=== PATIENT | male | born 1930 | race Caucasian/White ===

== ENCOUNTER 2017-07-19 22:47 | Inpatient (IN) | payer MEDICARE, OTHER, MEDICAID ==
[2017-07-19] MEDS ORDERED: Sodium Chloride 0.9% 10 ML Syringe FLUSH PRN (22:53)
[2017-07-19] MEDS ORDERED: Lactated Ringers 1,000 ML IV ONE (22:56)
--- NOTE | 2017-07-19 23:02 | EDM.PDOC ---
ED HPI GENERAL MEDICAL PROBLEM - General Chief Complaint: Respiratory Problem Stated Complaint: SOB Time Seen by Provider: 07/19/17 22:53 Source of Information: Reports: EMS, Family, RN Notes Reviewed History Limitations: Reports: Respiratory Distress - History of Present Illness INITIAL COMMENTS - FREE TEXT/NARRATIVE: 86-year-old gentleman brought in by EMS services for increasing respiratory distress and hypoxia, recently diagnosed with aspiration pneumonia within the last week, he is a resident of a detention and is a DNR/DNI. After discussion with the family he has progressively gotten worse with his aspiration and has Alzheimer's dementia as well. For this particular event detention staff found him in respiratory distress and hypoxic EMS services were called EMS crew initiated CPAP transported him to the emergency department for further evaluation. Upon arrival he is in respiratory distress saturations mid 80s on CPAP noncommunicative. The majority of this is taken from review of systems, EMS and family members Treatments [employer]: Reports: IV/IO - Related Data Allergies Allergy/AdvReac Type Severity Reaction Status Date / Time No Known Allergies Allergy Verified 06/27/16 11:52 Home Meds: Home Meds Aspirin 1 tab PO Q2D 06/27/16 [History] Polyethylene Glycol 3350 [MiraLAX] 17 gm PO DAILY 06/27/16 [History] Acetaminophen 650 mg PO BID 07/19/17 [History] Albuterol [IJD: Albuterol] 3 ml INH QID 07/19/17 [History] Benzonatate [Benzonatate] 200 mg PO TID 07/19/17 [History] Cholecalciferol (Vitamin D3) [Vitamin D3] 1 tab PO DAILY 07/19/17 [History] Loratadine [Claritin RediTabs] 1 tab PO DAILY 07/19/17 [History] Mirtazapine [Mirtazapine] 1 tab PO BEDTIME 07/19/17 [History] Tamsulosin [Flomax] 1 cap PO BEDTIME 07/19/17 [History] rOPINIRole [Requip] 2 mg PO BEDTIME 07/19/17 [History] Past Medical History Cardiovascular History: Reports: CAD, High Cholesterol, Hypertension, DC Genitourinary History: Reports: BPH, Prostate Disorder Neurological History: Reports: Alzheimers Disease Psychiatric History: Reports: Dementia, Depression Dermatologic History: Reports: Cellulitis - Infectious Disease History Infectious Disease History: Reports: MRSA - Past Surgical History Cardiovascular Surgical History: Reports: Coronary Artery Bypass Musculoskeletal Surgical History: Reports: Shoulder Surgery Social & Family History - Tobacco Use Smoking Status *Q: Never Smoker ED ROS GENERAL - Review of Systems Review Of Systems: Unable To Obtain ED EXAM, GENERAL - Physical Exam Exam: See Below Exam Limited By: Respiratory Distress General Appearance: Obtunded, Severe Distress Respiratory/Chest: Respiratory Distress, Rhonchi, Wheezing, Accessory Muscle Use , Retractions Cardiovascular: Tachycardia GI/Abdominal: Soft, Non-Tender Course - Vital Signs Last Recorded V/S: Last Vital Signs Temp 97.6 F 07/19/17 22:55 Pulse 120 H 07/19/17 22:55 Resp 46 H 07/20/17 00:30 BP 140/74 07/20/17 00:30 Pulse Ox 95 07/20/17 00:30 - Orders/Labs/Meds Orders: Active Orders 24 hr Category Date Time Status BIPAP Adult [RT BiPAP/CPAP] [RC] ASDIRECTED Care 07/19/17 22:55 Active Cardiac Monitoring [RC] .As Directed Care 07/19/17 22:54 Active EKG Documentation Completion [RC] ASDIRECTED Care 07/19/17 22:55 Active Oxygen Therapy [RC] ASDIRECTED Care 07/19/17 22:53 Active Peripheral IV Care [RC] . DIRECTED Care 07/19/17 22:55 Active RT Aerosol Therapy [RC] ASDIRECTED Care 07/19/17 23:43 Active Vital Signs [RC] Q1H Care 07/19/17 23:46 Active Chest 1V Frontal [CR] Stat Exams 07/19/17 22:55 Taken CULTURE BLOOD [BC] Urgent Lab 07/19/17 23:01 Ordered CULTURE BLOOD [BC] Urgent Lab 07/19/17 23:01 Ordered Levofloxacin/Dextrose 5%-Water [Levaquin in D5W 750 MG/ Med 07/19/17 23:45 Active 150 ML] 750 mg Premix Bag 1 bag IV Q24H Morphine Med 07/20/17 01:03 Once 2 mg IVPUSH ONETIME ONE Sodium Chloride 0.9% [Saline Flush] Med 07/19/17 22:53 Active 10 ml FLUSH ASDIRECTED PRN Blood Culture x2 Reflex Set [OM.PC] Urgent Oth 07/19/17 23:00 Ordered Peripheral IV Insertion Adult [OM.PC] Stat Oth 07/19/17 22:53 Ordered Saline Lock Insert [OM.PC] Stat Oth 07/19/17 22:53 Ordered EKG 12 Lead [EK] Stat Ther 07/19/17 22:55 Ordered Medication Orders Levofloxacin/Dextrose 750 mg/ (Premix) 150 mls @ 100 mls/hr IV Q24H [facility] Last Admin: 07/19/17 23:58 Dose: 100 mls/hr Sodium Chloride (Saline Flush) 10 ml FLUSH ASDIRECTED PRN PRN Reason: Keep Vein Open Last Admin: 07/19/17 23:07 Dose: 10 ml Labs: Laboratory Tests 07/19/17 07/19/17 07/19/17 Range/Units 22:53 22:53 22:53 WBC 21.4 H (4.5-11.0) K/uL RBC 4.96 (4.30-5.90) M/uL Hgb 14.6 (12.0-15.0) g/dL Hct 44.8 (40.0-54.0) % MCV 90 (80-98) fL MCH 29 (27-31) pg MCHC 33 (32-36) % Plt Count 298 (150-400) K/uL Neut % (Auto) 83 H (36-66) % Lymph % (Auto) 12 L (24-44) % Sac % (Auto) 4 (2-6) % Eos % (Auto) 1 L (2-4) % Baso % (Auto) 0 (0-1) % Puncture Site ABG pH (7.350-7.450) ABG pCO2 (35.0-42.0) mmHg ABG pO2 (75.0-100.0) mmHg ABG HCO3 (22.0-26.0) mmol/L ABG Total CO2 (23.0-27.0) mmol/L ABG O2 Saturation (95.0-98.0) % ABG O2 Content (15.0-23.0) %vol ABG Base Excess mm/L ABG Hemoglobin (13.5-18.0) g/dL ABG Oxyhemoglobin % ABG Carboxyhemoglobin (0.0-1.6) % ABG Methemoglobin % Андрей Test O2 Delivery Device Oxygen Flow Rate L Sodium 141 (140-148) mmol/L Potassium 4.6 (3.6-5.2) mmol/L Chloride 108 (100-108) mmol/L Carbon Dioxide 27 (21-32) mmol/L Anion Gap 5.9 (5.0-14.0) mmol/L BUN 25 H (7-18) mg/dL Creatinine 1.5 H (0.8-1.3) mg/dL Est Cr Clr Drug Dosing 35.35 mL/min Estimated GFR (MDRD) 44 L (>60) Glucose 196 H (74-106) mg/dL Lactic Acid 2.3 H (0.4-2.0) mmol/L Calcium 8.8 (8.5-10.1) mg/dL Phosphorus 4.8 (2.5-4.9) mg/dL Magnesium 2.3 (1.8-2.4) mg/dL Total Bilirubin 0.3 (0.2-1.0) mg/dL AST 18 (15-37) U/L ALT 20 (12-78) U/L Alkaline Phosphatase 82 (46-116) U/L Troponin I 0.187 H* (0.000-0.056) ng/mL C-Reactive Protein (0.0-0.3) mg/dL NT-Pro-B Natriuret Pep (5-450) pg/mL Total Protein 8.2 (6.4-8.2) g/dL Albumin 3.0 L (3.4-5.0) g/dL Globulin 5.2 H (2.3-3.5) g/dL Albumin/Globulin Ratio 0.6 L (1.2-2.2) 07/19/17 07/19/17 07/19/17 Range/Units 22:56 23:46 23:50 WBC (4.5-11.0) K/uL RBC (4.30-5.90) M/uL Hgb (12.0-15.0) g/dL Hct (40.0-54.0) % MCV (80-98) fL MCH (27-31) pg MCHC (32-36) % Plt Count (150-400) K/uL Neut % (Auto) (36-66) % Lymph % (Auto) (24-44) % Sac % (Auto) (2-6) % Eos % (Auto) (2-4) % Baso % (Auto) (0-1) % Puncture Site Lt radial ABG pH 7.211 L (7.350-7.450) ABG pCO2 67.7 H (35.0-42.0) mmHg ABG pO2 51.3 L (75.0-100.0) mmHg ABG HCO3 26.1 H (22.0-26.0) mmol/L ABG Total CO2 24.3 (23.0-27.0) mmol/L ABG O2 Saturation 76.9 L (95.0-98.0) % ABG O2 Content 15.2 (15.0-23.0) %vol ABG Base Excess -3.1 mm/L ABG Hemoglobin 14.2 (13.5-18.0) g/dL ABG Oxyhemoglobin 76.2 % ABG Carboxyhemoglobin 0.4 (0.0-1.6) % ABG Methemoglobin 0.5 % Андрей Test Passed O2 Delivery Device Cpap Oxygen Flow Rate 8 L Sodium (140-148) mmol/L Potassium (3.6-5.2) mmol/L Chloride (100-108) mmol/L Carbon Dioxide (21-32) mmol/L Anion Gap (5.0-14.0) mmol/L BUN (7-18) mg/dL Creatinine (0.8-1.3) mg/dL Est Cr Clr Drug Dosing mL/min Estimated GFR (MDRD) (>60) Glucose (74-106) mg/dL Lactic Acid (0.4-2.0) mmol/L Calcium (8.5-10.1) mg/dL Phosphorus (2.5-4.9) mg/dL Magnesium (1.8-2.4) mg/dL Total Bilirubin (0.2-1.0) mg/dL AST (15-37) U/L ALT (12-78) U/L Alkaline Phosphatase (46-116) U/L Troponin I (0.000-0.056) ng/mL C-Reactive Protein 1.49 H (0.0-0.3) mg/dL NT-Pro-B Natriuret Pep 393 (5-450) pg/mL Total Protein (6.4-8.2) g/dL Albumin (3.4-5.0) g/dL Globulin (2.3-3.5) g/dL Albumin/Globulin Ratio (1.2-2.2) Meds: Medications Generic Name Dose Route Start Last Admin Trade Name Freq PRN Reason Stop Dose Admin Levofloxacin/Dextrose 750 mg/ 150 mls @ 100 mls/hr 07/19/17 23:45 07/19/17 23 :58 Premix IV 100 mls/hr Q24H KARRIE Administration Sodium Chloride 10 ml 07/19/17 22:53 07/19/17 23:07 Saline Flush FLUSH 10 ml ASDIRECTED PRN Administration Keep Vein Open Discontinued Medications Generic Name Dose Route Start Last Admin Trade Name Freq PRN Reason Stop Dose Admin Albuterol/Ipratropium 3 ml 07/19/17 23:43 07/19/17 23:48 Duoneb 3.0-0.5 Mg/3 Ml NEB 07/19/17 23:44 3 ml ONETIME ONE Administration Lactated Ringer's 1,000 mls @ 500 mls/hr 07/19/17 22:56 07/19/17 23:07 Ringers, Lactated IV 07/20/17 00:55 500 mls/hr BOLUS ONE Administration Morphine Sulfate 2 mg 07/19/17 23:43 07/19/17 23:48 Morphine IVPUSH 07/19/17 23:44 2 mg ONETIME ONE Administration Morphine Sulfate 2 mg 07/20/17 00:29 07/20/17 00:35 Morphine IVPUSH 07/20/17 00:30 2 mg ONETIME ONE Administration Departure - Departure Time of Disposition: 01:08 Disposition: Admitted As Inpatient 66 Condition: Poor Clinical Impression: Respiratory distress Aspiration pneumonia Qualifiers: Aspiration pneumonia type: due to regurgitated food Laterality: unspecified laterality Sepsis Qualifiers: Sepsis type: sepsis due to unspecified organism Qualified Code(s): A41.9 - Sepsis, unspecified organism - Discharge Information Referrals: Johnny Rocha MD [Primary Care Provider] - Forms: ED Department Discharge - My Orders Last 24 Hours: My Active Orders 07/19/17 22:53 Oxygen Therapy [RC] ASDIRECTED Sodium Chloride 0.9% [Saline Flush] 10 ml FLUSH ASDIRECTED PRN Peripheral IV Insertion Adult [OM.PC] Stat Saline Lock Insert [OM.PC] Stat 07/19/17 22:54 Cardiac Monitoring [RC] .As Directed 07/19/17 22:55 BIPAP Adult [RT BiPAP/CPAP] [RC] ASDIRECTED EKG Documentation Completion [RC] ASDIRECTED Peripheral IV Care [RC] . DIRECTED Chest 1V Frontal [CR] Stat EKG 12 Lead [EK] Stat 07/19/17 23:00 Blood Culture x2 Reflex Set [OM.PC] Urgent 07/19/17 23:01 CULTURE BLOOD [BC] Urgent CULTURE BLOOD [BC] Urgent 07/19/17 23:43 RT Aerosol Therapy [RC] ASDIRECTED 07/19/17 23:45 Levofloxacin/Dextrose 5%-Water [Levaquin in D5W 750 MG/150 ML] 750 mg Premix Bag 1 bag IV Q24H 07/19/17 23:46 Vital Signs [RC] Q1H 07/20/17 01:03 Morphine 2 mg IVPUSH ONETIME ONE - Assessment/Plan Last 24 Hours: My Active Orders 07/19/17 22:53 Oxygen Therapy [RC] ASDIRECTED Sodium Chloride 0.9% [Saline Flush] 10 ml FLUSH ASDIRECTED PRN Peripheral IV Insertion Adult [OM.PC] Stat Saline Lock Insert [OM.PC] Stat 07/19/17 22:54 Cardiac Monitoring [RC] .As Directed 07/19/17 22:55 BIPAP Adult [RT BiPAP/CPAP] [RC] ASDIRECTED EKG Documentation Completion [RC] ASDIRECTED Peripheral IV Care [RC] . DIRECTED Chest 1V Frontal [CR] Stat EKG 12 Lead [EK] Stat 07/19/17 23:00 Blood Culture x2 Reflex Set [OM.PC] Urgent 07/19/17 23:01 CULTURE BLOOD [BC] Urgent CULTURE BLOOD [BC] Urgent 07/19/17 23:43 RT Aerosol Therapy [RC] ASDIRECTED 07/19/17 23:45 Levofloxacin/Dextrose 5%-Water [Levaquin in D5W 750 MG/150 ML] 750 mg Premix Bag 1 bag IV Q24H 07/19/17 23:46 Vital Signs [RC] Q1H 07/20/17 01:03 Morphine 2 mg IVPUSH ONETIME ONE Plan: Assessment Acuity = acute Site and laterality = respiratory distress with sepsis complicated in a patient with known history of coronary artery disease, Alzheimer's dementia and history of aspiration Etiology = secondary to pulmonary cause Manifestations = hypoxemia requiring BiPAP, tachypnea Location of injury = Home Lab values = WBC elevated 21.4 consistent with leukocytosis ABG reveals pH 7.4 PCO2 67.7 PO2 51.3 and 26.14 bicarbonate creatinine elevated at 1.5 consistent with acute renal failure stage G IIIB troponin elevated at 0.187 probably related to demand ischemia, CRP elevated 1.49 BMP within normal limits 393, urinalysis pending, chest x-ray I did review films myself I cannot appreciate any acute process, the official read from radiology is pending, EKG demonstrates a sinus tachycardia with T-wave inversions this is different than prior EKGs Plan Reviewed his care and condition with family members they would like to go to comfort care only with his DO NOT RESUSCITATE DO NOT INTUBATE status no aggressive measures elected not to go to the ICU at this time preferred a hospital bed I discussed case with Dr. Schreiber physician databases software consultant he agreed to evaluate the patient in the hospital This note was dictated using Swoop voice recognition software please call with any questions.
[2017-07-19] MEDS ORDERED: Morphine 2 MG/ML Syringe IVPUSH ONE (23:43)
[2017-07-19] MEDS ORDERED: Albuterol/Ipratropium 3.0-0.5 MG/3 ML Neb Soln NEB ONE (23:43)
[2017-07-19] MEDS ORDERED: Levofloxacin/Dextrose 5%-Water 750 MG in Premix Bag 1 BAG IV SCH (23:45)
[2017-07-20] MEDS ORDERED: Morphine 2 MG/ML Syringe IVPUSH ONE ×2 (00:29→01:03)
[2017-07-20] MEDS ORDERED: LORazepam 2 MG/ML MDV IVPUSH ONE (01:13)
[2017-07-20] MEDS ORDERED: Morphine 2 MG/ML Syringe IVPUSH PRN (01:13)
[2017-07-20] MEDS ORDERED: Ondansetron 4 MG/2 ML SDV IV PRN (01:13)
[2017-07-20] MEDS ORDERED: LORazepam 2 MG/ML MDV IVPUSH PRN ×2 (01:19→10:04)
[2017-07-20] MEDS ORDERED: Aspirin 81 MG Tab.Chew PO SCH ×2 (01:30→09:00)
[2017-07-20] MEDS: Lactated Ringers 1,000 ML IV SCH ×2 (02:00→09:09)
[2017-07-20] MEDS ORDERED: Albuterol 0.083% 2.5 MG/3 ML Neb Soln INH SCH (07:00)
--- NOTE | 2017-07-20 08:31 | CR ---
Heart size upper limits of normal. Sternotomy. Mild interstitial densities may relate to mild interst itial pulmonary edema. Infection is not excluded within the lung bases. There are 2 nodular densities right lower lung zone. These may reflect calcific granulomas but are indeterminate. Recommend nonurg ent chest CT follow-up.
[2017-07-20] MEDS ORDERED: Loratadine 10 MG Tab.DIS PO SCH (09:00)
[2017-07-20] MEDS ORDERED: Polyethylene Glycol 3350 Powder 17 GM Packet PO SCH ×2 (09:00)
[2017-07-20] MEDS ORDERED: Polyethylene Glycol 3350 Powder 238 GM Bot PO SCH (09:00)
[2017-07-20] MEDS ORDERED: Benzonatate 100 MG Cap PO SCH (09:00)
--- NOTE | 2017-07-20 10:10 | PCM.PN ---
- General Info Date of Service: 07/20/17 - Review of Systems Systems Review Comment:: Sunil was admitted last night with hypoxic respiratory failure secondary to aspiration pneumonia. Family would prefer a comfort-based approach and feel that the current level of support is beyond his previously stated wishes but they have a sister who is traveling to see him and they're hoping that he will stay alive long enough for her to say goodbye. He is requiring a fair amount of support from the noninvasive ventilation. He remains obtunded and unable to take any oral medications at this time. He appears comfortable. - Patient Data Vitals - Most Recent: Last Vital Signs Temp 36.4 C 07/20/17 07:00 Pulse 109 H 07/20/17 07:50 Resp 22 H 07/20/17 07:00 BP 138/62 07/20/17 07:00 Pulse Ox 93 L 07/20/17 07:50 Weight - Most Recent: 97.069 kg Lab Results Last 24 Hours: Laboratory Results - last 24 hr 07/20/17 07/20/17 Range/Units 04:50 04:50 WBC 6.9 (4.5-11.0) K/uL RBC 4.77 (4.30-5.90) M/uL Hgb 13.9 (12.0-15.0) g/dL Hct 43.8 (40.0-54.0) % MCV 92 (80-98) fL MCH 29 (27-31) pg MCHC 32 (32-36) % Plt Count 267 (150-400) K/uL Neut % (Auto) 88 H (36-66) % Lymph % (Auto) 5 L (24-44) % Hunt % (Auto) 6 (2-6) % Eos % (Auto) 0 L (2-4) % Baso % (Auto) 0 (0-1) % Sodium 142 (140-148) mmol/L Potassium 5.0 (3.6-5.2) mmol/L Chloride 107 (100-108) mmol/L Carbon Dioxide 28 (21-32) mmol/L Anion Gap 7.3 (5.0-14.0) mmol/L BUN 26 H (7-18) mg/dL Creatinine 1.4 H (0.8-1.3) mg/dL Est Cr Clr Drug Dosing 37.88 mL/min Estimated GFR (MDRD) 48 L (>60) Glucose 165 H (74-106) mg/dL Calcium 8.3 L (8.5-10.1) mg/dL Total Bilirubin 0.5 D (0.2-1.0) mg/dL AST 26 (15-37) U/L ALT 19 (12-78) U/L Alkaline Phosphatase 71 (46-116) U/L Troponin I 2.485 H* (0.000-0.056) ng/mL Total Protein 7.1 (6.4-8.2) g/dL Albumin 2.6 L (3.4-5.0) g/dL Globulin 4.5 H (2.3-3.5) g/dL Albumin/Globulin Ratio 0.6 L (1.2-2.2) Med Orders - Current: Current Medications Albuterol (Proventil Neb Soln) 2.5 mg INH QIDRT [facility] Last Admin: 07/20/17 07:50 Dose: 2.5 mg Lactated Ringer's (Ringers, Lactated) 1,000 mls @ 125 mls/hr IV ASDIRECTED [facility] Last Admin: 07/20/17 09:09 Dose: 125 mls/hr Levofloxacin/Dextrose 750 mg/ (Premix) 150 mls @ 100 mls/hr IV Q48H [facility] Ondansetron HCl (Zofran) 4 mg IV Q4H PRN PRN Reason: Nausea/Vomiting Sodium Chloride (Saline Flush) 10 ml FLUSH ASDIRECTED PRN PRN Reason: Keep Vein Open Last Admin: 07/19/17 23:07 Dose: 10 ml Discontinued Medications Albuterol/Ipratropium (Duoneb 3.0-0.5 Mg/3 Ml) 3 ml NEB ONETIME ONE Stop: 07/19/17 23:44 Last Admin: 07/19/17 23:48 Dose: 3 ml Aspirin (Aspirin) 81 mg PO Q2D [facility] Last Admin: 07/20/17 02:43 Dose: Not Given Aspirin (Aspirin) 81 mg PO Q2D [facility] Last Admin: 07/20/17 08:28 Dose: Not Given Benzonatate (Tessalon Perles) 200 mg PO TID [facility] Last Admin: 07/20/17 08:29 Dose: Not Given Lactated Ringer's (Ringers, Lactated) 1,000 mls @ 500 mls/hr IV BOLUS ONE Stop: 07/20/17 00:55 Last Admin: 07/19/17 23:07 Dose: 500 mls/hr Levofloxacin/Dextrose 750 mg/ (Premix) 150 mls @ 100 mls/hr IV Q24H [facility] Last Admin: 07/19/17 23:58 Dose: 100 mls/hr Loratadine (Claritin Reditabs) 10 mg PO DAILY [facility] Last Admin: 07/20/17 08:28 Dose: Not Given Lorazepam (Ativan) 1 mg IVPUSH ONETIME ONE Stop: 07/20/17 01:14 Last Admin: 07/20/17 01:19 Dose: 1 mg Lorazepam (Ativan) 1 mg IVPUSH Q4H PRN PRN Reason: Anxiety Morphine Sulfate (Morphine) 2 mg IVPUSH ONETIME ONE Stop: 07/19/17 23:44 Last Admin: 07/19/17 23:48 Dose: 2 mg Morphine Sulfate (Morphine) 2 mg IVPUSH ONETIME ONE Stop: 07/20/17 00:30 Last Admin: 07/20/17 00:35 Dose: 2 mg Morphine Sulfate (Morphine) 2 mg IVPUSH ONETIME ONE Stop: 07/20/17 01:04 Last Admin: 07/20/17 01:11 Dose: 2 mg Morphine Sulfate (Morphine) 2 mg IVPUSH Q2H PRN PRN Reason: Anxiety Last Admin: 07/20/17 03:59 Dose: 2 mg Polyethylene Glycol (Miralax) 17 gm PO DAILY [facility] Last Admin: 07/20/17 08:28 Dose: Not Given Ropinirole HCl (Requip) 2 mg PO BEDTIME [facility] Tamsulosin HCl (Flomax) 0.4 mg PO BEDTIME [facility] - Exam Quality Assessment: Supplemental Oxygen, Urine Catheter General: No Acute Distress, Obtunded. No: Alert Lungs: Normal Respiratory Effort Cardiovascular: Regular Rate, Regular Rhythm GI/Abdominal Exam: Soft, No Distention Psy/Mental Status: Other (obtunded). No: Agitated - Problem List Review Problem List Initiated/Reviewed/Updated: Yes - My Orders Last 24 Hours: My Active Orders 07/20/17 10:04 LORazepam [Ativan] 0.5 mg IVPUSH Q1H PRN Morphine 2 mg IVPUSH Q1H PRN 07/20/17 Lunch NPO Now [Nothing per Oral Now Diet] [DIET] - Plan Plan:: Assessment and plan - Hypoxic respiratory failure secondary to aspiration pneumonitis/pneumonia - poor [id number] at baseline with advanced dementia. Significant aspiration and significant respiratory compromise. Family is requesting a comfort-based approach but hoping that all of the family can be gathered prior to complete withdrawal of these additional cares including noninvasive ventilation. -Continue noninvasive ventilation for now, plan to withdraw later in the day -Morphine and lorazepam for pain and anxiety as needed Advanced dementia - poor [id number] with severe limitations in patient has been fdc bound. He has suffered recurrent aspirations. Maintenance issues - - DVT prophylaxis - not indicated with comfort cares - GI prophylaxis - not indicated - Nutrition - nothing by mouth CODE STATUS - DNR/DNI with comfort approach Disposition - I would anticipate that the patient will pass quickly without the noninvasive ventilation. Family is on board with a comfort-based approach. They will be finalizing plans for transition to full comfort cares later this morning. Rafael Joya M.D.
[2017-07-20] MEDS ORDERED: Lactated Ringers 1,000 ML IV SCH (10:45)
[2017-07-20] MEDS: Morphine 2 MG/ML Syringe IVPUSH PRN ×6 (11:14→20:01)
[2017-07-20] MEDS ORDERED: Atropine Sulfate Ophth 2 ML Drops SL PRN (13:54)
[2017-07-20] MEDS: Atropine Sulfate Ophth 2 ML Drops SL PRN ×2 (14:48→20:04)
[2017-07-20 15:32] VITALS: BP 110/54
--- NOTE | 2017-07-20 15:44 | HP ---
CHIEF COMPLAINT: Respiratory distress. HISTORY OF PRESENT ILLNESS: An 86-year-old [facility] was brought in by EMS, because of respiratory distress and suspected aspiration pneumonia. Apparently, he was seen by his regular physician Dr. Rocha about a week ago, diagnosed with aspiration pneumonia which looks like it probably happened again. He was hypoxic on arrival. He was treated with BiPAP, morphine. He was started on Levaquin, sounds like family did not want any heroic measures. He is DNR/DNI, and was admitted under comfort care. PAST MEDICAL HISTORY: 1. Alzheimer's dementia. 2. History of aspiration pneumonia. 3. History of heart disease. MEDICATIONS: Acetaminophen 650 mg b.i.d., vitamin D3 daily, mirtazapine 15 mg at bedtime, albuterol nebs p.r.n., aspirin 81 mg daily, benzonatate 200 mg t.i.d. p.r.n., loratadine 10 mg daily, MiraLAX 17 g daily, Requip 2 mg at bedtime, Flomax 0.4 mg daily. ALLERGIES: NO KNOWN DRUG ALLERGIES. SOCIAL HISTORY: [facility]. FAMILY HISTORY: Unknown. REVIEW OF SYSTEMS: Really not been able to get much out of him. The ER doctor did talk to the family with the above findings. PHYSICAL EXAMINATION: VITAL SIGNS: Weight 97 kg, temperature 35.8, pulse 118, blood pressure 144/35, respirations 33, O2 saturation 94% on oxygen BiPAP, without did drop down to 70% range. GENERAL: The patient is sleeping with his BiPAP on. He does look like he is in respiratory distress, obtunded. HEENT: Pharynx unremarkable. LUNGS: Coarse bilaterally. HEART: Tachycardic. ABDOMEN: Soft. Did not appear to cause any tenderness. No mass or organomegaly palpated. EXTREMITIES: No edema. SKIN: Negative. LABORATORY DATA: White count on admission 21.4, hemoglobin 14.6, platelets 298,000. Sodium 141, potassium 4.6, chloride 108, creatinine 1.5, BUN is 25. Estimated GFR is 44. Liver functions are normal. Troponin 0.187. ABGs; pH 7.211, pCO2 of 67, pO2 of 51, bicarbonate 26, C-reactive protein was 1.49, and BNP was 393. ASSESSMENT: Aspiration pneumonia, progressive dementia. The patient's ER physician did talk to the family, want more of comfort care, which we will admit him. He has been started on IV Levaquin, which we will continue with the BiPAP and oxygen for comfort. He has been given morphine and right now looks comfortable. Otherwise, we will continue with current care started in the ER and transferred his care to the hospitalist service. Feliciano Schreiber MD /[id number]
[2017-07-20] MEDS ORDERED: Tamsulosin 0.4 MG Cap.ER PO SCH (21:00)
[2017-07-20] MEDS ORDERED: rOPINIRole 1 MG Tab PO SCH (21:00)
--- NOTE | 2017-07-21 15:41 | PCM.DCSUM1 ---
Discharge Summary - Hospital Course Brief History: 86-year-old male with history of Alzheimer's dementia who presented with acute shortness of breath and respiratory compromise. He was admitted to the hospital mostly for comfort care with significant aspiration pneumonitis. - Discharge Data Discharge Date: 07/20/17 Discharge Disposition: 20 Preliminary Cause of *Q: Respiratory Failure (Secondary to aspiration pneumonitis/pneumonia) Condition: Critical - Patient Summary/Data Hospital Course: Sunil [place] [facility] [place] [facility] with significant respiratory compromise after a suspected aspiration event. In the emergency room he was noted to have significant respiratory compromise and workup was consistent with aspiration pneumonitis as well as SIRS/sepsis. A discussion was held with the family regarding treatment options and they felt that a comfort-based approach would be the most appropriate at this time but did agree to continue antibiotics, IV fluids and noninvasive ventilation at the time of admission. He was admitted to the hospital and overnight remained stable but in serious condition. He remained obtunded and had significant respiratory compromise though his evidence for SIRS did improve with hydration. The morning after admission I talked to the family about treatment paths and felt that we were currently in a middle road where we were not providing full comfort cares but were not fully treating his aspiration. They felt that with his significant decline in quality of life caused by his dementia that he would not want these aggressive cares. They felt that a peer leak comfort-based approach would be the most appropriate. We elected to discontinue his noninvasive ventilation as well as the antibiotics and IV fluids. He was aggressively treated with morphine for pain and air hunger as well as lorazepam for any anxiety or agitation. He was comfortable throughout the day and passed peacefully the evening after admission. No attempts at resuscitation were made due to the family's previously stated wishes for comfort care and DO NOT RESUSCITATE. He was transported to the preferred home after his passing. - Discharge Plan Home Medications: Home Meds Aspirin 1 tab PO Q2D 06/27/16 [History] Polyethylene Glycol 3350 [MiraLAX] 17 gm PO DAILY 06/27/16 [History] Acetaminophen 650 mg PO BID 07/19/17 [History] Albuterol [IJD: Albuterol] 3 ml INH QID 07/19/17 [History] Benzonatate [Benzonatate] 200 mg PO TID 07/19/17 [History] Cholecalciferol (Vitamin D3) [Vitamin D3] 1 tab PO DAILY 07/19/17 [History] Loratadine [Claritin RediTabs] 1 tab PO DAILY 07/19/17 [History] Mirtazapine [Mirtazapine] 1 tab PO BEDTIME 07/19/17 [History] Tamsulosin [Flomax] 1 cap PO BEDTIME 07/19/17 [History] rOPINIRole [Requip] 2 mg PO BEDTIME 07/19/17 [History] Forms: ED Department Discharge Referrals: Johnny Rocha MD [Primary Care Provider] - - Discharge Summary/Plan Comment DC Time >30 min.: No (20) - Patient Data Vitals - Most Recent: Last Vital Signs Temp 37.0 C 07/20/17 19:00 Pulse 102 H 07/20/17 15:30 Resp 25 H 07/20/17 19:00 BP 110/54 L 07/20/17 15:30 Pulse Ox 73 L 07/20/17 19:00 Weight - Most Recent: 97.069 kg Med Orders - Current: Current Medications Discontinued Medications Albuterol (Proventil Neb Soln) 2.5 mg INH QIDRT [facility] Last Admin: 07/20/17 07:50 Dose: 2.5 mg Albuterol/Ipratropium (Duoneb 3.0-0.5 Mg/3 Ml) 3 ml NEB ONETIME ONE Stop: 07/19/17 23:44 Last Admin: 07/19/17 23:48 Dose: 3 ml Aspirin (Aspirin) 81 mg PO Q2D [facility] Last Admin: 07/20/17 02:43 Dose: Not Given Aspirin (Aspirin) 81 mg PO Q2D [facility] Last Admin: 07/20/17 08:28 Dose: Not Given Atropine Sulfate (Atropine 1%) 0 ml SL Q4H PRN PRN Reason: secretions Atropine Sulfate (Atropine 1%) 0 ml SL Q4H PRN PRN Reason: secretions Last Admin: 07/20/17 20:04 Dose: 4 drop Benzonatate (Tessalon Perles) 200 mg PO TID [facility] Last Admin: 07/20/17 08:29 Dose: Not Given Lactated Ringer's (Ringers, Lactated) 1,000 mls @ 500 mls/hr IV BOLUS ONE Stop: 07/20/17 00:55 Last Admin: 07/19/17 23:07 Dose: 500 mls/hr Levofloxacin/Dextrose 750 mg/ (Premix) 150 mls @ 100 mls/hr IV Q24H [facility] Last Admin: 07/19/17 23:58 Dose: 100 mls/hr Lactated Ringer's (Ringers, Lactated) 1,000 mls @ 125 mls/hr IV ASDIRECTED [facility] Last Infusion: 07/20/17 11:18 Dose: 25 mls/hr Levofloxacin/Dextrose 750 mg/ (Premix) 150 mls @ 100 mls/hr IV Q48H [facility] Lactated Ringer's (Ringers, Lactated) 1,000 mls @ 25 mls/hr IV ASDIRECTED [facility] Loratadine (Claritin Reditabs) 10 mg PO DAILY [facility] Last Admin: 07/20/17 08:28 Dose: Not Given Lorazepam (Ativan) 1 mg IVPUSH ONETIME ONE Stop: 07/20/17 01:14 Last Admin: 07/20/17 01:19 Dose: 1 mg Lorazepam (Ativan) 1 mg IVPUSH Q4H PRN PRN Reason: Anxiety Lorazepam (Ativan) 0.5 mg IVPUSH Q1H PRN PRN Reason: Anxiety Morphine Sulfate (Morphine) 2 mg IVPUSH ONETIME ONE Stop: 07/19/17 23:44 Last Admin: 07/19/17 23:48 Dose: 2 mg Morphine Sulfate (Morphine) 2 mg IVPUSH ONETIME ONE Stop: 07/20/17 00:30 Last Admin: 07/20/17 00:35 Dose: 2 mg Morphine Sulfate (Morphine) 2 mg IVPUSH ONETIME ONE Stop: 07/20/17 01:04 Last Admin: 07/20/17 01:11 Dose: 2 mg Morphine Sulfate (Morphine) 2 mg IVPUSH Q2H PRN PRN Reason: Anxiety Last Admin: 07/20/17 03:59 Dose: 2 mg Morphine Sulfate (Morphine) 2 mg IVPUSH Q1H PRN PRN Reason: Pain/Air Hunger Last Admin: 07/20/17 20:01 Dose: 2 mg Ondansetron HCl (Zofran) 4 mg IV Q4H PRN PRN Reason: Nausea/Vomiting Polyethylene Glycol (Miralax) 17 gm PO DAILY [facility] Last Admin: 07/20/17 08:28 Dose: Not Given Ropinirole HCl (Requip) 2 mg PO BEDTIME [facility] Sodium Chloride (Saline Flush) 10 ml FLUSH ASDIRECTED PRN PRN Reason: Keep Vein Open Last Admin: 07/19/17 23:07 Dose: 10 ml Tamsulosin HCl (Flomax) 0.4 mg PO BEDTIME [facility] *Q Meaningful Use (DIS) - VTE *Q VTE Criteria *Q: - Stroke *Q Stroke Criteria *Q: - AMI *Q AMI Criteria *Q:
[2017-07-21] MEDS ORDERED: Levofloxacin/Dextrose 5%-Water 750 MG in Premix Bag 1 BAG IV SCH (21:00)
== END 2017-07-20 20:25 | disposition expired | DRG 871 ==
LOC: JP.ED 22:47 → JP.MS 07-20 01:13
PROVIDERS: ADMIT Family Medicine; ATTEND Internal Medicine
DX: A41.9 Sepsis, unspecified organism (principal); J69.0 Pneumonitis due to inhalation of food and vomit; J96.91 Respiratory failure, unspecified with hypoxia; I10 Essential (primary) hypertension; I25.10 Atherosclerotic heart disease of native coronary artery without angina pectoris; Z66 Do not resuscitate; Z51.5 Encounter for palliative care; R06.02 Shortness of breath; G30.9 Alzheimer's disease, unspecified; I25.2 Old myocardial infarction; N40.0 Benign prostatic hyperplasia without lower urinary tract symptoms; Z95.1 Presence of aortocoronary bypass graft; Z79.82 Long term (current) use of aspirin; F02.80 Dementia in other diseases classified elsewhere, unspecified severity, without behavioral disturbance, psychotic disturbance, mood disturbance, and anxiety
CPT/HCPCS: 36415; 36600; 71010 ×2; 80053; 82803; 83605; 83735; 84100; 84484; 85025; 93005; 94640; 94660; 96361; 96365; 96375; 96376; 99285; J1956; J2270 ×3; J7050; J7120; J7620; 83880; 86140; 87040; 93010; A9270-GY; J2060